=== PATIENT | male | born 1950 | race Caucasian/White ===

== ENCOUNTER → 2017-01-27 | Outpatient (CLI) | payer BC ==
--- NOTE | 2017-01-27 15:04 | KCIC ---
Renal ultrasound History:Chronic kidney disease stage III Technique: Sonographic imaging of both kidneys. Findings: Aorta: Not documented. Inferior vena cava: Not documented. Right kidney measures 9.3 cm. Right kidney demonstrates some overall echogenicity and atrophic change. Left kidney measures 12.6 cm. No evidence of hydronephrosis. Focal echogenic structure with posterior shadowing measuring 9 mm identified at the midpole. This could represent calcification or calculus. Urinary bladder: Incompletely distended with urine, limiting evaluation. Left ureteric jet is documented. Right ureteric jet was not visualized. Prostate gland volume is approximately 22.2 cc. Impression: 1. Right kidney appears somewhat atrophic, with increased echogenicity as can be seen with chronic medical renal disease. 2. Echogenic shadowing structure within the left kidney, may represent a nonobstructive calculus. No evidence of hydronephrosis. 3. Incomplete urinary bladder evaluation. Electronically signed by: Abimael Nichole MD (01/27/2017 3:01 PM) [id number]
== END | disposition home or self-care (01) ==
LOC: KCIC US 14:17
PROVIDERS: ATTEND Internal Medicine Nephrology
DX: N18.3 Chronic kidney disease, stage 3 (moderate) (principal)
CPT/HCPCS: 76770